=== PATIENT | female | born 1960 | race Caucasian/White ===

== ENCOUNTER 2017-01-04 09:47 | Emergency (ER) | payer BC ==
[~2017-01-04] VITALS: Ht 157.5 cm; Wt 62.2 kg
[~2017-01-04 09:47] MED LIST: BENA40TA54 PO; IBUP-727; METF500T4
[2017-01-04 09:49] VITALS: Ht 157.5 cm; Wt 62.2 kg
[2017-01-04] MEDS ORDERED: ONDANSETRON 4 MG INJ IV STA (13:05)
--- NOTE | 2017-01-04 13:11 | ERD ---
ER Documentation Chief Complaint Date/Time DATE: 01/04/17 TIME: 13:09 Chief Complaint epigastric pain HPI HPI: Patient is a 56-year-old female who presents with sudden onset, intermittent, moderate, sharp and cramping left upper quadrant pain since 730 this morning. Patient reports multiple episodes of nonbloody, nonbilious emesis , and numerous episodes of watery diarrhea without blood or mucus. Patient reports recent trip to [facility], returned on Friday 4 days ago. Other family members on the trip have had similar symptoms that has resolved spontaneously. No travel to rural areas. Denies eating undercooked food. Patient reports mild subjective fever. ROS All systems reviewed and are negative except as per history of present illness. Medications Home Meds Active Scripts Dicyclomine Hcl* (Bentyl*) 10 Mg Capsule, 10 MG PO QID Y for PAIN, #20 CAP Prov:ARSENIO CARROLL MD 01/04/17 Famotidine* (Famotidine*) 20 Mg Tablet, 20 MG PO DAILY, #30 TAB Prov:ARSENIO CARROLL MD 01/04/17 Ondansetron HCl (Zofran) 4 Mg/5 Ml Solution, 4 MG PO Q8 Y for NAUSEA, #14 Prov:ARSENIO CARROLL MD 01/04/17 Reported Medications Omeprazole* (Omeprazole*) 40 Mg Capsule.dr, 40 MG PO DAILY, #30 CAP 01/04/17 Aspirin* (Aspirin* Chew) 81 Mg Tab.chew, 81 MG PO DAILY, TAB.CHEW 01/04/17 Sitagliptin Phos/Metformin HCl (Janumet 50-500 mg Tablet) 1 Each Tablet, 1 TAB PO BID, TAB 01/04/17 Meloxicam* (Meloxicam*) 7.5 Mg Tablet, 7.5 MG PO DAILY, #30 TAB 01/04/17 Calcium Carbonate (Oysco-500) 500 Mg Tablet, 500 MG PO DAILY, TAB 01/04/17 Discontinued Reported Medications Benazepril Hcl* (Lotensin*) 40 Mg Tablet, 10 MG PO DAILY 01/16/14 Metformin* (Glucophage*) 500 Mg Tab 11/23/09 Ibuprofen (Motrin) 600 Mg Tablet 11/23/09 Allergies Allergies: Coded Allergies: Penicillins (Verified Allergy, Intermediate, HIVES, 06/12/09) PMhx/Soc Past medical history: Diabetes mellitus, arthritis Past surgical history: Cholecystectomy Social history: Denies tobacco or alcohol. History of Surgery: Yes Anesthesia Reaction: No Hx Neurological Disorder: No Hx Respiratory Disorders: No Hx Cardiac Disorders: No Hx Psychiatric Problems: No Hx Miscellaneous Medical Probl: Yes (arthritis, diabetes) Hx Alcohol Use: No Hx Substance Use: No Hx Tobacco Use: No FmHx Family History: No coronary disease, No diabetes Physical Exam Vitals Vital Signs Date Time Temp Pulse Resp B/P Pulse Ox O2 Delivery O2 Flow Rate FiO2 01/04/17 09:49 98.1 95 18 123/80 99 Physical Exam Const: Alert, no acute distress Head: Atraumatic Eyes: Normal Conjunctiva, no pallor or icterus ENT: Normal External Ears, Nose and Mouth. Mucous membranes moist Neck: Full range of motion. No meningismus. Resp: Clear to auscultation bilaterally, no wheezes or rales Cardio: Regular rate and rhythm, no murmurs, no gallop Abd: Soft, nondistended, mild tenderness in epigastrium and left upper quadrant, no guarding or rebound Skin: No petechiae or rashes Back: No midline or flank tenderness Ext: No cyanosis, or edema Neur: Awake and alert, cranial nerves II through XII intact bilaterally, strength and sensation intact in 4 extremities Psych: Normal Mood and Affect Result Diagram: 01/04/17 1315 01/04/17 1315 Results 24 hrs Laboratory Tests Test 01/04/17 13:15 White Blood Count 9.510^3/ul Red Blood Count 5.0710^6/ul Hemoglobin 14.6g/dl Hematocrit 43.2% Mean Corpuscular Volume 85.2fl Mean Corpuscular Hemoglobin 28.8pg Mean Corpuscular Hemoglobin Concent 33.8g/dl Red Cell Distribution Width 12.9% Platelet Count 02168^3/UL Mean Platelet Volume 11.0fl Neutrophils % 89.5% Lymphocytes % 4.7% Monocytes % 4.3% Eosinophils % 1.1% Basophils % 0.1% Nucleated Red Blood Cells % 0.0/100WBC Neutrophils # 8.510^3/ul Lymphocytes # 0.510^3/ul Monocytes # 0.410^3/ul Eosinophils # 0.110^3/ul Basophils # 0.010^3/ul Nucleated Red Blood Cells # 0.010^3/ul Urine Color YELLOW Urine Clarity TURBID Urine pH 5.0 Urine Specific Gilman >=1.030 Urine Ketones TRACE Urine Nitrite NEGATIVE Urine Bilirubin NEGATIVE Urine Urobilinogen 0.2 E.U./dL Urine Leukocyte Esterase NEGATIVE Urine Microscopic RBC NONE SEEN/HPF Urine Microscopic WBC NONE SEEN/HPF Urine Amorphous Urates MANY Urine Bacteria FEW Urine Hemoglobin NEGATIVE Urine Glucose NEGATIVE% Urine Total Protein NEGATIVE Sodium Level 138mmol/L Potassium Level 3.9mmol/L Chloride Level 105mmol/L Carbon Dioxide Level 22mmol/L Anion Gap 15 Blood Urea Nitrogen 17mg/dl Creatinine 0.60mg/dl Glucose Level 177mg/dl Calcium Level 9.4mg/dl Total Bilirubin 0.4mg/dl Direct Bilirubin 0.00mg/dl Indirect Bilirubin 0.4mg/dl Aspartate Amino Transf (AST/SGOT) 37IU/L Alanine Aminotransferase (ALT/SGPT) 56IU/L Alkaline Phosphatase 159IU/L Total Protein 8.3g/dl Albumin 4.5g/dl Globulin 3.80g/dl Albumin/Globulin Ratio 1.18 Lipase 73U/L Current Medications Medications (Trade) Dose Ordered Sig/Radha Route PRN Reason Start Time Stop Time Status Last Admin Dose Admin Famotidine (Pepcid Iv) 20 mg ONCE ONCE IV 01/04/17 13:30 01/04/17 13:31 DC 01/04/17 13:25 Ondansetron HCl (Zofran Inj) 4 mg ONCE STAT IV 01/04/17 13:05 01/04/17 13:08 DC 01/04/17 13:25 Dicyclomine HCl (Bentyl) 20 mg ONCE ONCE IM 01/04/17 13:30 01/04/17 13:31 DC 01/04/17 13:31 Procedures/MDM MDM: Patient with 1 day of vomiting and diarrhea. Complains of left upper quadrant pain and has mild tenderness on exam. Unremarkable labs, no leukocytosis, no LFT abnormalities, no evidence of pancreatitis, no evidence of dehydration or electrolyte abnormality. Patient was treated with Zofran, Pepcid and Bentyl, and on reassessment has benign abdominal exam and states that her symptoms have improved. Symptoms are consistent with gastroenteritis, likely of viral etiology. Advised patient to take copious p.o. fluids, bland diet, and advance diet as tolerated. Advise return precautions for ongoing vomiting, worsening pain, fever, or other concerns. Will provide prescription for medications for symptomatically treatment. Departure Diagnosis: Primary Impression: Gastroenteritis Condition: Stable ARSENIO CARROLL MD Jan 04, 2017 13:11
[2017-01-04] MEDS ORDERED: DICYCLOMINE 20 MG INJ IM ONE (13:30)
[2017-01-04] MEDS ORDERED: FAMOTIDINE 20 MG INJ IV ONE (13:30)
[2017-01-04 13:33] LABS: ADD SCAN DIFF NO
[2017-01-04 13:37] LABS: ABNORMAL IP MESSAGE 1; BASOPHILS % 0.1 % (0.0-2.0); EOSINOPHILS # 0.1 10^3/ul (0.0-0.5); EOSINOPHILS % 1.1 % (0.0-7.0); HEMATOCRIT 43.2 % (37.0-47.0); HEMOGLOBIN 14.6 g/dl (12.0-16.0); LYMPHOCYTES # 0.5 10^3/ul (0.8-2.9); LYMPHOCYTES % 4.7 % (15.0-51.0); MEAN CORPUSCULAR HEMOGLOBIN 28.8 pg (29.0-33.0); MEAN CORPUSCULAR HGB CONC 33.8 g/dl (32.0-37.0); MEAN CORPUSCULAR VOLUME 85.2 fl (82.0-101.0); MONOCYTE # 0.4 10^3/ul (0.3-0.9); MONOCYTES % 4.3 % (0.0-11.0); NEUTROPHIL # 8.5 10^3/ul (1.6-7.5); NEUTROPHILS % 89.5 % (39.0-77.0); PLATELET COUNT 256 10^3/UL (140-415); RED BLOOD COUNT 5.07 10^6/ul (4.20-5.40); RED CELL DISTRIBUTION WIDTH 12.9 % (11.5-14.5); WHITE BLOOD COUNT 9.5 10^3/ul (4.8-10.8)
[2017-01-04 13:39] LABS: ADD UMIC YES; URINE BLOOD (Dip) NEGATIVE (NEGATIVE); URINE COLOR YELLOW (YELLOW); URINE GLUCOSE (Dip) NEGATIVE (NEGATIVE); URINE KETONES (Dip) TRACE (NEGATIVE); URINE LEUKOCYTE ESTERASE (Dip) NEGATIVE (NEGATIVE); URINE NITRITE (Dip) NEGATIVE (NEGATIVE); URINE TOTAL PROTEIN (Dip) NEGATIVE (NEGATIVE); URINE UROBILINOGEN (Dip) 0.2 E.U./dL (0.1-1.0)
[2017-01-04 13:54] LABS: URINE BILIRUBIN (Dip) NEGATIVE (NEGATIVE)
[2017-01-04 13:58] LABS: ALBUMIN 4.5 g/dl (3.3-4.9)
[2017-01-04 13:59] LABS: BACTERIA,URINE FEW; POTASSIUM 3.9 mmol/L (3.5-5.1); URINE RBCS NONE SEEN /HPF (0)
[2017-01-04 14:01] LABS: BILIRUBIN,INDIRECT 0.4 mg/dl (0-1.1); BILIRUBIN,TOTAL 0.4 mg/dl (0.2-1.3); CREATININE 0.6 mg/dl (0.44-1.00)
[2017-01-04 14:02] LABS: ALBUMIN/GLOBULIN RATIO 1.18; CALCIUM 9.4 mg/dl (8.4-10.2); TOTAL PROTEIN 8.3 g/dl (6.1-8.1)
[2017-01-04] MEDS ORDERED: OMEP40CA6 PO (14:21)
[2017-01-04] MEDS ORDERED: MELO-109 PO (14:21)
[2017-01-04] MEDS ORDERED: ASPI81TA3 PO (14:21)
[2017-01-04] MEDS ORDERED: SITA1TAB PO (14:21)
[2017-01-04] MEDS ORDERED: CALC500T11 PO (14:21)
[2017-01-04] MEDS ORDERED: ONDA4SOL2 PO (14:29)
[2017-01-04] MEDS ORDERED: DICY10CA60 PO (14:29)
[2017-01-04] MEDS ORDERED: FAMO20TA18 PO (14:29)
[2017-01-04 14:50] VITALS: BP 120/71; PULSE 91; RESP 18; TEMP 98.7
== END 2017-01-04 14:51 | disposition home or self-care (01) ==
LOC: E/R 09:47
DX: K52.9 Noninfective gastroenteritis and colitis, unspecified (principal); E11.9 Type 2 diabetes mellitus without complications; R11.10 Vomiting, unspecified; Z79.82 Long term (current) use of aspirin; Z79.84 Long term (current) use of oral hypoglycemic drugs
CPT/HCPCS: 36415; 80053; 81001; 83690; 85025; 96372; 96374; 96375; 99284; J0500; J2405; Z7610; 81003